=== PATIENT | male | born 1950 | race African-American/Black ===

== ENCOUNTER 2024-07-26 09:34 | Outpatient (CLI) | payer OTHER ==
[2024-07-26] MEDS ORDERED: Iopamidol 300 61% 100 ML VIAL FS ONE (11:32)
[2024-07-26] MEDS ORDERED: Magnevist 469MG/ML 20 ML VIAL ONE (11:41)
== END 2024-07-26 09:35 | disposition home or self-care (01) ==
LOC: CSHCT 09:34
PROVIDERS: ATTEND Internal Medicine Hematology & Oncology
DX: C20 Malignant neoplasm of rectum (principal); R91.8 Other nonspecific abnormal finding of lung field; C79.89 Secondary malignant neoplasm of other specified sites
CPT/HCPCS: 36415; 71260; 72197; 74160; 82565; Q9967

== ENCOUNTER 2025-04-13 13:59 | Outpatient (CLI) | payer OTHER | END 2025-04-13 14:00 | disposition home or self-care (01) | LOC: CSHWCC 13:59 | PROVIDERS: ATTEND Nurse Practitioner Family | DX: S31.109D Unspecified open wound of abdominal wall, unspecified quadrant without penetration into peritoneal cavity, subsequent encounter (principal); L59.8 Other specified disorders of the skin and subcutaneous tissue related to radiation; Z85.46 Personal history of malignant neoplasm of prostate | CPT/HCPCS: 99214; G0463 ==

== ENCOUNTER 2025-04-20 13:04 | Outpatient (CLI) | payer OTHER | END 2025-04-20 13:05 | disposition home or self-care (01) | LOC: CSHWCC 13:04 | PROVIDERS: ATTEND Nurse Practitioner Family | DX: S31.109D Unspecified open wound of abdominal wall, unspecified quadrant without penetration into peritoneal cavity, subsequent encounter (principal); L59.8 Other specified disorders of the skin and subcutaneous tissue related to radiation; Z85.46 Personal history of malignant neoplasm of prostate | CPT/HCPCS: 99212; G0463 ==

== ENCOUNTER 2025-05-04 12:48 | Outpatient (CLI) | payer OTHER | END 2025-05-04 12:49 | disposition home or self-care (01) | LOC: CSHWCC 12:48 | PROVIDERS: ATTEND Nurse Practitioner Family | DX: S31.109D Unspecified open wound of abdominal wall, unspecified quadrant without penetration into peritoneal cavity, subsequent encounter (principal); L59.8 Other specified disorders of the skin and subcutaneous tissue related to radiation; Z85.46 Personal history of malignant neoplasm of prostate | CPT/HCPCS: 11042 ==

== ENCOUNTER 2025-05-18 13:04 | Outpatient (CLI) | payer OTHER | END 2025-05-18 13:05 | disposition home or self-care (01) | LOC: CSHWCC 13:04 | PROVIDERS: ATTEND Nurse Practitioner Family | DX: S31.109D Unspecified open wound of abdominal wall, unspecified quadrant without penetration into peritoneal cavity, subsequent encounter (principal); L59.8 Other specified disorders of the skin and subcutaneous tissue related to radiation; Z85.46 Personal history of malignant neoplasm of prostate | CPT/HCPCS: 11042 ==

== ENCOUNTER 2025-06-24 07:53 | Outpatient (CLI) | payer OTHER ==
[2025-06-24] MEDS ORDERED: Iopamidol 370 76% 100 ML VIAL ONE (10:03)
== END 2025-06-24 07:54 | disposition home or self-care (01) ==
LOC: CSHCT 07:53
PROVIDERS: ATTEND Internal Medicine Hematology & Oncology
DX: C20 Malignant neoplasm of rectum (principal); D50.0 Iron deficiency anemia secondary to blood loss (chronic); D47.3 Essential (hemorrhagic) thrombocythemia; Z90.49 Acquired absence of other specified parts of digestive tract; Z93.3 Colostomy status; R91.1 Solitary pulmonary nodule; N32.89 Other specified disorders of bladder
CPT/HCPCS: 71260; 74177; Q9967